=== PATIENT | male | born 1975 | race Caucasian/White ===

== ENCOUNTER → 2016-06-18 | Outpatient (CLI) | payer OTHER ==
[~2016-06-18] MED LIST: OXYC1TAB3 PO
--- NOTE | 2016-06-18 15:37 | DIAGNOSTIC IMAGING REPORT ---
LEFT ELBOW MIN 3 VIEWS ROUTINE CLINICAL HISTORY: LEFT ELBOW INJURY trauma. Pain. COMPARISON: None. DISCUSSION: The bones and joint spaces appear intact. There is no evidence of fracture, dislocation or bony disease. Mild posterior soft tissue edema IMPRESSION: Mild soft tissue edema. No acute bony abnormality. Electronically signed by: Benton Erickson M.D. 06/18/2016 3:35 PM Dictated Date/Time: 06/18/2016 3:35 PM
== END | disposition home or self-care (01) ==
LOC: C.RAD1850 15:25
PROVIDERS: ATTEND Family Medicine
DX: S49.92XA Unspecified injury of left shoulder and upper arm, initial encounter (principal); W19.XXXA Unspecified fall, initial encounter; M70.22 Olecranon bursitis, left elbow